=== PATIENT | male | born 1955 | race Caucasian/White ===

== ENCOUNTER → 2019-11-04 | Outpatient (CLI) | payer BC, OTHER ==
[~2019-11-04] MED LIST: ACTOS 45 MG45 MG PO; ASPIRIN325 PO; ATENOLOL 50MG T50 M1 PO; CLOPIDOGREL75 MG PO; COLACE 100 MG100 MG PO; CRESTOR20 MG PO; FLOMAX0.4 MG PO; GLUCOPHAGE1000 MG PO; HYDROCHLOROTHIA25 M2 PO; HYDROCODON-ACE1 EAC7 PO; JARDIANCE25 MG PO; PRINIVIL40 MG PO; TOUJEO MAX300 UNIT/1 SUBQ; TRULICITY1.5 MG/0.5 SUBQ; XARELTO10 MG PO
== END ==
LOC: SJCVCIMAG 07:58
PROVIDERS: ATTEND Internal Medicine
DX: I35.2 Nonrheumatic aortic (valve) stenosis with insufficiency (principal); I51.7 Cardiomegaly; E78.5 Hyperlipidemia, unspecified; G47.33 Obstructive sleep apnea (adult) (pediatric); Z99.89 Dependence on other enabling machines and devices

== ENCOUNTER 2019-11-08 06:27 | Observation (INO) | payer BC, OTHER ==
[~2019-11-08] VITALS: Ht 180.3 cm; Wt 146.9 kg
[2019-11-08] VITALS (11 sets, daily range): BP systolic 103–150; BP diastolic 54–73
[~2019-11-08 06:27] MED LIST changes: -ASPIRIN325 PO; -CLOPIDOGREL75 MG PO; -CRESTOR20 MG PO; -JARDIANCE25 MG PO
[2019-11-08 07:34] LABS: HEMATOCRIT 29.6 % (42.0-52.0); HEMOGLOBIN 9.8 gm/dL (14.0-18.0); MCH 27.2 pg (26.0-34.0); MCHC 33.1 g/dL (28.0-37.0); MCV 82.1 fL (80.0-100.0); RBC 3.61 mil/uL (4.50-6.00); RDW 15.8 % (10.5-14.5); WBC 6.5 thou/uL (4.0-11.0)
[2019-11-08] MEDS ORDERED: JARDIANCE25 MG PO (07:43)
[2019-11-08] MEDS ORDERED: CRESTOR20 MG PO (07:44)
[2019-11-08 07:50] LABS: CALCIUM 9.1 mg/dL (8.5-10.1); CREATININE 1.6 mg/dL (0.7-1.3); POTASSIUM 4.3 mmol/L (3.5-5.1)
--- NOTE | 2019-11-08 10:26 | CATHLAB ---
[facility] [address] [place] [address] INVASIVE PROCEDURE REPORT Name: ROLANDO LEWIS Room #: 207-P [facility] M.R.#: [id number] Admission: 11/08/19 Attend Phys: Isiah Green MD, Discharge: Date of : 59 Report #: [id number] THIS REPORT FOR: cc: Noel Emmanuel MD, Steven A. MD Lundgren, Craig H. MD [facility] ~ APPROVED REPORT Study performed: 11/08/2019 07:39:40 Patient Details Patient Status: Out-Patient Room #: The patient is a 63 year-old male Event Personnel Isiah Green Head Well Puller, Gaurav Nava RTR Ronaldo King Ja'net RTR Monitor, Carlo Kuhn RN Procedures Performed Coronary Angiography Only 8792304 CORANG FFR 8948981 FFR SEEMA Place w/wo Plasty Single CIRC 315665 Art Access - R femoral artery* Hemostasis w/ Mynx 57455 Initial Mod Sed Same Phys/QHP Gr5y 083799 10567 Mod Sed Same Phys/QHP Ea 111679 Procedure Narrative The patient was brought electively to the Cardiac Catheterization Laboratory and was prepped and draped in a sterile manner. The Right Groin^ was infiltrated with 1% Lidocaine subcutaneous anesthesia. A PINNACLE 6FR Sheath #[id number] sheath was inserted into the RFA^. Coronary angiography was performed using coronary diagnostic catheters. The right coronary system was accessed and visualized with a JR4 catheter. The left coronary system was accessed and visualized with a JL4 catheter. Closure device was deployed with a Fr MYNXGRIP 6/7F #[id number]. The patient tolerated the procedure well and there were no complications associated with the procedure. There was no hematoma. FFR MEASUREMENT WAS 0.89. Intraoperative Conscious Sedation Sedation start time: 8:53 Case end Time: 9:48 Fentanyl 200 mcg Versed 4 mg Fluoro Time: 7.48 minutes Dose: DAP 03651.40 cGycm2 1788 mGy [facility] [address] [place] [address] INVASIVE PROCEDURE REPORT Name: ROLANDO LEWIS [place] Room #: 207-P [facility] [place] .R.#: [id number] Admission: 11/08/19 Attend Phys: Isiah Green, Discharge: Date of : 59 Report #: [id number] Contrast Type and Amount: Visipaque 200 ml Coronary Angiography The patient's coronary anatomy is co- dominant. Diagnostic Cath Left Main Normal left main LAD 30-40% proximal to mid LAD stenosis Circumflex 85% proximal circumflex stenosis, flow limiting by FFR assessment (0.89) OM1 Large first marginal branch, angiographically normal L PDA Moderate size posterior descending artery, angiographically normal Right Coronary Chronically occluded mid right coronary with [id number] distal collateralization Left Ventriculography Left Ventriculography was not performed. PCI Technique Lesion Anticoagulation was achieved with Heparin, Integrilin. Patient was preloaded with Plavix. Percutaneous coronary intervention was performed on the proximal circumflex artery segment. The lesion stenosis prior to intervention was 85% with MARCIAL 3 flow. A LAUNCHER 6FR EBU 3.5 #[id number] Guide Catheter was used to engage the CIRC ostium. A Luge Wire .014 x 182CM #[id number] Interventional Guidewire was used to cross the lesion. BALLOON DILATION A Balloon catheter Euphora RX 3.5 x 15 #[id number] was inserted and inflated up to 12.00atm for 25seconds. Repeat angiography revealed the following post-dilatation results: Moderate residual stenosis. STENT DEPLOYMENT A stent RESOLUTE RACHANA RX 4.0 X 15 #[id number] was inserted and inflated up to 15.00atm for 30seconds. POST STENT DEPLOYMENT BALLOON DILATION A Balloon catheter TREK NC RX 4.0 X 12 #[id number] was inserted and inflated up to 18.00atm for 29seconds. Additional Inflation: 22.00atm for 15seconds. Final angiography reveals 0 % stenosis with MARCIAL 3 flow. [facility] [address] [place] [address] INVASIVE PROCEDURE REPORT Name: ROLANDO LEWIS Room #: 207-P [facility] [place] M.R.#: [id number] Admission: 11/08/19 Attend Phys: Isiah Green, Discharge: Date of : 59 Report #: [id number] Conclusion 1. Normal left main 2. Moderate 30-40% mid LAD stenosis 3. Severe proximal circumflex stenosis successfully stented with a 4.0 x 15 mm Resolute medicated stent 4. Occluded codominant right coronary with [id number]-fj-[id number] collateralization 5. EF Normal by echocardiogram. Moderately severe aortic stenosis (Peak gradient 51mm, mean 36mmHg). Recommendations Cardiac Rehabilitation Referral Aggressive Medical Therapy Weight Loss Reduction Program <ELECTRONICALLY SIGNED> By: Isiah Green MD, FACC 11/08/19 1025 1025 1025 Isiah Green MD, FACC /INF
[2019-11-08] MEDS ORDERED: ASPIRIN325 PO (11:07)
[2019-11-08] MEDS ORDERED: CLOPIDOGREL75 MG PO (11:07)
--- NOTE | 2019-11-08 14:08 | EKG ---
[facility] [place] [address] ELECTROCARDIOGRAM REPORT Name: ROLANDO LEWIS Room #: 207-[facility] M.R.#: [id number] Admission: 11/08/19 Attend Phys: Isiah Green MD, Discharge: Date of : 59 Report #: [id number] THIS REPORT FOR: cc: Noel Emmanuel MD, Steven A. MD Couchonnal,Romeo Bee MD ~ THIS REPORT FOR: //name// [facility] Test Date: 2019-11-08 Test Time: 10:45:17 Pat Name: ROLANDO LEWIS Department: Room: [facility] Gender: M Food Counselor: Aviva CHANDRA : 1955 Requested By: Isiah Green Order Number: [id number] MD: Romeo Bright Measurements Intervals [place] Rate: 57 P: 0 MI: 222 QRS: 8 QRSD: 93 T: 26 QT: 388 QTc: 378 Interpretive Statements Sinus rhythm Prolonged MI interval No previous ECG available for comparison Electronically Signed On 11-08-2019 14:07:24 CDT by Romeo Bright [email or web address] <ELECTRONICALLY SIGNED> By: Romeo Bright MD 11/08/19 1407 1045 1045 Romeo Bright MD /EPI
--- NOTE | 2019-11-08 19:50 | NUR ---
ASSUMMED PT CARE AT APPROXIMATELY 1015. PT A&O X4. ASSESSMENT CHARTED. FALL PRECAUTIONS IN PLACE. PT DENIES HAVING CHEST PAIN. PT DENIES HAVING SOB. PT STATED HE HAD PAIN FROM L KNEE. PT RECEIVED ANALGESICS. PT STATED ANALGESICS HELPED RELIEVE PAIN. PT POST CATH. R GROIN C/D/I. NO HEMATOMA. BED REST COMPLETE. PT AMBULATES UNSTEADY C 1 ASSIST AND CANE. VITAL SIGNS STABLE. BLOOD SUGARS STABLE. EDUCATED PT ABOUT POC. PT STATED UNDERSTANDING AND DENIED HAVING FURTHER QUESTIONS. PT COMFORTABLE IN BED. PT DENIES HAVING FURTHER CONCNERS.
[2019-11-09 00:02] VITALS: BP 145/62
[2019-11-09 03:30] VITALS: BP 155/72
[2019-11-09 04:19] LABS: HEMATOCRIT 29.6 % (42.0-52.0); HEMOGLOBIN 9.4 gm/dL (14.0-18.0); MCH 26.4 pg (26.0-34.0); MCHC 31.9 g/dL (28.0-37.0); MCV 82.6 fL (80.0-100.0); RBC 3.58 mil/uL (4.50-6.00); RDW 16.1 % (10.5-14.5); WBC 7.9 thou/uL (4.0-11.0)
[2019-11-09 04:39] LABS: ALBUMIN 3.4 g/dL (3.4-5.0); ANION GAP 10 mmol/L (7-16); BUN 26 mg/dL (7-18); CALCIUM 8.7 mg/dL (8.5-10.1); CHLORIDE 102 mmol/L (98-107); CO2 25 mmol/L (21-32); CREATININE 1.3 mg/dL (0.7-1.3); GLUCOSE 82 mg/dL (74-106); POTASSIUM 3.9 mmol/L (3.5-5.1); SGOT 17 U/L (15-37); SGPT 30 U/L (30-65); SODIUM 137 mmol/L (136-145); TOTAL BILIRUBIN 0.3 mg/dL (0.2-1.0); TOTAL PROTEIN 6.6 g/dL (6.4-8.2); TROPONIN-I <0.06 ng/mL (<0.06)
--- NOTE | 2019-11-09 05:17 | NUR ---
ASSUMED PT CARE AT 1900.PT IS ALERT AND ORIENTED. NO SIGN OF DISTRESS NOTED IN PT. PT IS STABLE. RIGHT GROIN SITE IS CLEAN, DRY AND INTACT. NO BLEEDING, BRUISING OR HEMTOMA NOTED. PT VERBALIZES PAIN TO LEFT KNEE. ASSESSMENT COMPLETED AND DOCUMENTED. FALL PRECAUTION IN PLACE. SCHEDULED MEDS ADMINISTERED TO PT. PAIN MEDS ADMINISTERED WELL. NO EVENTS OVERNIGHT. CONTINUE TO MONITOR. NO FURTHER NEEDS AT THIS TIME.
[2019-11-09 07:15] VITALS: BP 131/71
[2019-11-09 07:45] VITALS: BP 131/71
--- NOTE | 2019-11-09 08:42 | D ---
[facility] [place] [address] [address] [place] [address] DISCHARGE SUMMARY Name: ROLANDO LEWIS Room #: 207-P [facility] M.R.#: [id number] Admission: 11/08/19 Attend Phys: Isiah Green MD, Discharge: Date of : 59 Report #: [id number] THIS REPORT FOR: cc: Noel Emmanuel MD,Noel Green,Isiah Arellano MD [facility] ~ THIS REPORT FOR: //name// CC: Isiah Emmanuel MD DISCHARGE DIAGNOSES: 1. Unstable angina. 2. Severe coronary artery disease with stenting of the proximal circumflex (4.0 x 15 mm Resolute medicated stent). 3. Diabetes. 4. Chronic kidney disease stage 2. 5. Hypertension. 6. Dyslipidemia. 7. Sleep apnea, on CPAP. 8. Moderately severe aortic stenosis. HISTORY OF PRESENT ILLNESS AND HOSPITAL COURSE: For the complete details of history of present illness, see dictated history and physical. Briefly, the patient is a 63-year-old gentleman with multiple comorbidities and an extremely high coronary calcium score of 1752. He presented with exertional breathlessness and symptoms suggestive of progressive angina. Coronary angiography was undertaken, the results of which can be found under separate heading and dictation. In summary, mild to moderate plaquing was evident in the mid portion of the LAD. The circumflex exhibited a high-grade proximal stenosis, flow limiting by FFR assessment. The circumflex was codominant. He underwent stenting of this vessel with a 4.0 x 15 mm Resolute medicated stent, postdilated to close to 4.2 mm with a noncompliant balloon. The right coronary was occluded and filled by left to right collateralization. His post-procedural course was largely uneventful. He was treated with heparin, aspirin and Plavix in the periprocedural setting. He was ambulating and pain free at the time of discharge. A recent evaluation has included an echocardiogram which demonstrated normal left ventricular systolic function and at least moderately severe calcific aortic stenosis with a peak transaortic gradient of 51 mm and mean gradient of 36 mmHg. Close outpatient monitoring of this is warranted. Medicines were reconciled. DISCHARGE MEDICATIONS: Include atenolol 50 mg daily, hydrochlorothiazide [address] [address] DISCHARGE SUMMARY Name: ROLANDO LEWIS Room #: 207-P [facility] M.R.#: [id number] Admission: 11/08/19 Attend Phys: Isiah Green MD, Discharge: Date of : 59 Report #: [id number], insulin 42 units of Toujeo at night, lisinopril 40 mg daily, metformin 1000 mg twice daily, Actos 45 mg daily, Flomax 0.4 mg daily, Jardiance 25 mg daily, rosuvastatin 20 mg daily. DISCHARGE DIET: Low fat, low cholesterol, prudent diabetic diet. DISCHARGE ACTIVITY: As instructed post-catheterization. Arrangements were made for outpatient cardiac rehabilitation. DISCHARGE FOLLOWUP: With myself in 1 month. Follow up with Dr. Noel Emmanuel as previously arranged. DISCHARGE CONDITION: Stable and improved. <ELECTRONICALLY SIGNED> By: Isiah Green MD, [facility] 11/09/19 0842 1056 1259 Isiah Green MD, FACC /nt
[2019-11-09 09:13] VITALS: BP 131/71
--- NOTE | 2019-11-09 09:51 | EKG ---
[facility] [place] [address] [place] [address] ELECTROCARDIOGRAM REPORT Name: ROLANDO LEWIS Room #: 207-[facility] M.R.#: [id number] Admission: 11/08/19 Attend Phys: Isiah Green MD, Discharge: Date of : 59 Report #: [id number] THIS REPORT FOR: cc: Noel Emmanuel MD, Steven A. MD Lundgren,Isiah Arellano MD [facility] ~ THIS REPORT FOR: //name// [facility] Test Date: 2019-11-09 Test Time: 07:42:54 Pat Name: ROLANDO LEWIS Department: Room: 207 P Gender: M Cabin Worker: CODY : 1955 Requested By: Isiah Green Order Number: [id number] MD: Isiah Green Measurements Intervals [place] Rate: 65 P: 54 VA: 198 QRS: 8 QRSD: 97 T: 40 QT: 381 QTc: 397 Interpretive Statements Sinus rhythm Normal tracing Compared to ECG 11/08/2019 10:45:17 First degree AV block no longer present Electronically Signed On 11-09-2019 9:51:02 CDT by Isiah Green [email or web address] <ELECTRONICALLY SIGNED> By: Isiah Green MD, [facility] 11/09/19 0951 0742 0742 Isiah Green MD, [facility] /EPI
--- NOTE | 2019-11-09 10:35 | NUR ---
PT CARE ASSUMED AT 0700. ASSESSMENT CHARTED. MEDICATIONS CHARTED. PT AO X 4. VSS. PT DENIES PAIN. PT DISCHARGED. IV D/C'D. TELEMETRY D/C'D. PT TO HOME.
== END 2019-11-09 10:30 | disposition home or self-care (01) ==
LOC: CATH 06:27 → 2N 10:21 → CATH 11:11 → 2N 11-09 10:30
PROVIDERS: ADMIT Internal Medicine; ATTEND Internal Medicine
DX: I25.110 Atherosclerotic heart disease of native coronary artery with unstable angina pectoris (principal); E11.22 Type 2 diabetes mellitus with diabetic chronic kidney disease; I12.9 Hypertensive chronic kidney disease with stage 1 through stage 4 chronic kidney disease, or unspecified chronic kidney disease; N18.2 Chronic kidney disease, stage 2 (mild); E78.5 Hyperlipidemia, unspecified; I35.0 Nonrheumatic aortic (valve) stenosis; G47.30 Sleep apnea, unspecified